=== PATIENT | male | born 1930 | race Native Hawaiian/Other Pacific Islander ===

== ENCOUNTER 2018-04-16 10:23 | Emergency (ER) | payer OTHER ==
[~2018-04-16] VITALS: Ht 170.2 cm; Wt 804.7 kg
[~2018-04-16 10:23] MED LIST: CALC667T2 PO; CARV6.25 PO; CLOP75TA2 PO; D 10001000 UNIT OR; ENALAPRIL5 MG PO; PRAVASTATIN10 MG PO
[2018-04-16 10:25] VITALS: TEMP 97.8
[2018-04-16 12:01] LABS: PLATELET COUNT 174 K/uL (142-355)
[2018-04-16 12:28] LABS: POTASSIUM 4.2 mmol/L (3.6-5.2)
[2018-04-16 14:00] VITALS: BP 152/90
== END 2018-04-16 14:37 | disposition home or self-care (01) ==
LOC: ED 10:23
PROVIDERS: Family Medicine
DX: M79.1 Myalgia (principal); M79.605 Pain in left leg
CPT/HCPCS: 36415; 80053; 81000; 84550; 85027; 99283